=== PATIENT | male | born 1945 | race Caucasian/White ===

== ENCOUNTER → 2016-09-07 | Outpatient (CLI) | payer OTHER | LOC: GIMAGING 13:00 | PROVIDERS: ATTEND Nurse Practitioner Family | DX: J40 Bronchitis, not specified as acute or chronic (principal) | CPT/HCPCS: 71020-PO ==

== ENCOUNTER 2016-09-22 11:46 | Emergency (ER) | payer OTHER ==
[2016-09-22] MEDS ORDERED: IPRATROPIUM/ALBUTEROL 3 ML DEYVIAL ONE (13:00)
[2016-09-22] MEDS ORDERED: IPRATROPIUM/ALBUTEROL 3 ML DEYVIAL IH ONE (13:06)
--- NOTE | 2016-09-22 13:06 | EDPHY ---
H & P Stated Complaint: dx bronchitis/continues sob/fevers Source: Patient Exam Limitations: No limitations - Personal History Current Tetanus/Diphtheria Vaccine: Yes - Medical/Surgical History Hx Asthma: No Hx Chronic Respiratory Disease: No Hx Diabetes: No Hx Cardiac Disease: No Hx Renal Disease: No Hx Cirrhosis: No Hx Alcoholism: No Hx HIV/AIDS: No Hx Splenectomy or Spleen Trauma: No Other PMH: htn - Family History Significant Family History: No pertinent family hx - Social History Smoking Status: Never smoked Alcohol Use: Sober Drug Use: None Time Seen by Provider: 09/22/16 12:59 HPI/ROS: CHIEF COMPLAINT: Cough HISTORY OF PRESENT ILLNESS: Patient is a 70-year-old man who comes to the emergency department complaining of a persistent cough and mild dyspnea. He has a history of smoking but quit several years ago and has never suffered from COPD. He was seen at the urgent care 3 weeks ago and diagnosed initially with bronchitis and influenza a positive. He was treated with Tamiflu, albuterol and course of steroids. He did not feel better. He went back a week later and again had a chest x-ray that revealed bronchitis. He was placed on another course of steroids and albuterol. He states that he hates steroids and they make him feel jittery when he stops taking them. He is here requesting antibiotics. He also states that he had a fever last night to 101. He has not been hypoxic. He is currently afebrile. 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 He does not have any leg swelling or pain. No recent travel. REVIEW OF SYSTEMS: Constitutional: denies: chills, fever, recent illness, recent injury EENTM: denies: blurred vision, double vision, nose congestion Respiratory: See HPI Cardiac: denies: chest pain, irregular heart rate, lightheadedness, palpitations Gastrointestinal/Abdominal: denies: abdominal pain, diarrhea, nausea, vomiting, blood streaked stools Genitourinary: denies: dysuria, frequency, hematuria, pain Musculoskeletal: denies: joint pain, muscle pain Skin: denies: lesions, rash, jaundice, bruising Neurological: denies: headache, numbness, paresthesia, tingling, dizziness, weakness Hematologic/Lymphatic: denies: blood clots, easy bleeding, easy bruising Immunologic/allergic: denies: HIV/AIDS, transplant EXAM: GENERAL: Well-appearing, well-nourished and in no acute distress. HEAD: Atraumatic, normocephalic. EYES: Pupils equal round and reactive to light, extraocular movements intact, sclera anicteric, conjunctiva are normal. ENT: TMs normal, nares patent, oropharynx clear without exudates. Moist mucous membranes. NECK: Normal range of motion, supple without lymphadenopathy or JVD. LUNGS: Breath sounds clear to auscultation bilaterally and equal. No wheezes rales or rhonchi. HEART: Regular rate and rhythm without murmurs, rubs or gallops. ABDOMEN: Soft, nontender, normoactive bowel sounds. No guarding, no rebound. No masses appreciated. BACK: No CVA tenderness, no spinal tenderness, step-offs or deformities EXTREMITIES: Normal range of motion, no pitting or edema. No clubbing or cyanosis. NEUROLOGICAL: Cranial nerves II through XII grossly intact. Normal speech, normal gait. 5/5 strength, normal movement in all extremities, normal sensation PSYCH: Normal mood, normal affect. SKIN: Warm, dry, normal turgor, no visible rashes or lesions. (Chiki Cole) Constitutional: Initial Vital Signs Temperature (C) 36.3 C 09/22/16 11:56 Heart Rate 108 H 09/22/16 11:56 Respiratory Rate 20 09/22/16 11:56 Blood Pressure 120/91 H 09/22/16 11:56 O2 Sat (%) 92 09/22/16 11:56 O2 Delivery Mode Room Air O2 (L/minute) 2 Allergies/Adverse Reactions: No Known Allergies Allergy (Unverified 09/22/16 11:55) Home Medications: Medication Instructions Recorded Omeprazole 09/22/16 Triamterene 09/22/16 Medical Decision Making - Diagnostics EKG Interpretation: An EKG obtained and was read and documented in trace view. Please see trace view for full reading and report. Sinus tachycardia, no acute ischemic changes. (Chiki Cole) Imaging: X-ray: chest x-ray was obtained. I viewed the images myself on the PACS system. My interpretation of the images is: Mild bronchitis. The radiologist interpretation is pending. (Chiki Cole) ED Course/Re-evaluation: 2:25 p.m. the patient is feeling much better. He is saturating 92% on room air. Nursing staff states that he did saturate down to 88% after returning from x-ray. Treat with another nebulizer and a dose of steroids. I will also start on azithromycin. 3:00 p.m. the patient is hyperglycemic but not acidotic. Also he is hyponatremic Likely from the elevated glucose. I will treat with IV fluids and a dose of insulin and recheck his glucose. His heart rate is 100 to 104 otherwise oxygen saturations 92%. Discussed the case with Dr. Arminda Degroot. We agreed to continue with ER treatment. The patient does not wish to come into the hospital and we may be able to turn her around emergency department with close follow up with his primary Dr. Duarte. 3:15 p.m. care transferred to Dr. Agueda Andrade. We are awaiting insulin dose and repeat his glucose level as well as observation for mild tachycardia and borderline hypoxic. Dr. Degroot is aware of the patient if he requires admission. (Chiki Cole) Differential Diagnosis: Partial list of the Differential diagnosis considered include but were not limited to; bronchitis, pneumonia, COPD exacerbation, asthma and although unlikely based on the history and physical exam, I also considered pneumothorax , PE, acute coronary disease. I discussed these differential diagnoses and the plan with the patient as well as the usual and expected course. The patient understands that the diagnosis is provisional and that in medicine we are not always correct and that further workup is often warranted. Usual and customary warnings were given. All of the patient's questions were answered. The patient was instructed to return to the emergency department should the symptoms at all worsen or return, otherwise to followup with the physician as we discussed. (Chiki Cole) Other Provider: The patient was signed out to me by Dr. Cole at shift change. He presents with ongoing URI sx and hyperglycemia. His main reason for coming to the ED is for Abx. He was diagnosed 3 weeks ago with bronchitis and influenza A. He was treated with Tamiflu, albuterol and course of steroids. He continued to have a cough and was reevaluated 1 week later. CXR unremarkable. [place] He states his oxygen saturations are in the upper 88-92% at home. He declines admission and home oxygen. He agrees with the plan to start antibiotics. 4:00 p.m.: After patient received 5 units of insulin at 3pm, his glucose is now 382. I continued to advise admission, though the pt declines. He also declines treatment for hyperglycemia/diabetes. He will buy a glucometer and record his blood sugars prior to his PCP visit. Dietary advice given. (Agueda Andrade) - Data Points Laboratory Results: Laboratory Results 09/22/16 13:40 09/22/16 13:40 09/22/16 13:46 Hemoglobin A1c 9.6 % H D % (4.0-6.0) Estim Average Glucose 229 mg/dL H mg/dL (68-126) Microbiology Results: MICROBIOLOGY 09/22/16 13:40 Blood Blood Culture - Preliminary 09/22/16 14:10 Blood Blood Culture - Preliminary Medications Given: Discontinued Medications Albuterol (Proventil Neb) 3 ml IH EDNOW ONE Stop: 09/22/16 14:27 Last Admin: 09/22/16 14:50 Dose: 3 ml Albuterol/Ipratropium (Duoneb) 3 ml IH EDNOW ONE Stop: 09/22/16 13:07 Last Admin: 09/22/16 13:07 Dose: 3 ml Azithromycin (Zithromax) 500 mg PO EDNOW ONE PRN Reason: Protocol Stop: 09/22/16 14:27 Last Admin: 09/22/16 15:02 Dose: 500 mg Sodium Chloride (Ns) 1,000 mls @ 0 mls/hr IV ONCE ONE PRN Reason: Wide Open Stop: 09/22/16 15:04 Last Admin: 09/22/16 15:18 Dose: 1,000 mls Insulin Human Regular (Humulin R) 5 unit IVP EDNOW ONE Stop: 09/22/16 15:02 Last Admin: 09/22/16 15:17 Dose: 5 unit Methylprednisolone Sodium Succinate (Solu-Medrol) 125 mg IVP EDNOW ONE Stop: 09/22/16 14:27 Last Admin: 09/22/16 15:03 Dose: 125 mg Departure - Departure Disposition: Home, Routine, Self-Care Clinical Impression: Hyperglycemia Acute bronchitis Qualifiers: Bronchitis organism: unspecified organism Qualified Code(s): J20.9 - Acute bronchitis, unspecified Condition: Fair Instructions: Acute Bronchitis (ED), Diabetic Hyperglycemia (ED) Additional Instructions: Buy a glucometer and check and record your blood sugar before meals and at bedtime. Take the record to Dr. Duarte for further evaluation. Use oxygen concentrator at night. Return if you feel more short of breath or if your symptoms worsen. Referrals: Thomas Duarte MD [Primary Care Provider] - 2-3 days, call for appt.
--- NOTE | 2016-09-22 13:31 | CPEKG ---
Heart Rate: 106 RR Interval: 566 P-R Interval: 156 QRSD Interval: 90 QT Interval: 356 QTC Interval: 473 P Dale: 85 QRS Dale: 116 T Wave Dale: 33 EKG Severity - ABNORMAL ECG - EKG Impression: SINUS TACHYCARDIA EKG Impression: LEFT POSTERIOR FASCICULAR BLOCK EKG Impression: BORDERLINE R WAVE PROGRESSION, ANTERIOR LEADS Electronically Signed By: Chiki Cole 22-Sep-2016 13:48:33
[2016-09-22 13:51] LABS: % IMMATURE GRANULYOCYTES 0.8 % (0.0-1.1); ABSOLUTE IMMATURE GRANULOCYTES 0.08 10^3/uL (0.00-0.10); ADD DIFF? NO; ADD MORPH? NO; ADD SCAN? NO; ATYPICAL LYMPHOCYTE FLAG 0 (0-99); FRAGMENT RBC FLAG 0 (0-99); LEFT SHIFT FLG 0 (0-99); LIPEMIA HEMOLYSIS FLAG 90 (0-99); MEAN CELL HEMOGLOBIN 33.1 pg (27.9-34.1); MEAN CELL HEMOGLOBIN CONCENTR. 35.3 g/dL (32.4-36.7); MEAN CELL VOLUME 93.9 fL (81.5-99.8); MEAN PLATELET VOLUME 11.4 fL (8.7-11.7); PLATELET CLUMPS FLAG 40 (0-99); PLATELET COUNT 137 10^3/uL (150-400); RED BLOOD CELL COUNT 5.43 10^6/uL (4.40-6.38); RED CELL DISTRIBUTION WIDTH 13.1 % (11.5-15.2)
[2016-09-22] MEDS ORDERED: AZITHROMYCIN 250 MG TAB PO ONE (14:26)
[2016-09-22] MEDS ORDERED: ALBUTEROL 3 ML DEYVIAL IH ONE (14:26)
[2016-09-22] MEDS ORDERED: methylPREDNISolone SOD SUCC 125 MG/2 ML VIAL IVP ONE (14:26)
[2016-09-22 14:30] LABS: ANION GAP 16 mEq/L (8-16); CALCIUM 9.4 mg/dL (8.5-10.4); CARBON DIOXIDE 25 mEq/l (22-31); CHLORIDE 88 mEq/L (97-110); CREATININE 1.3 mg/dL (0.7-1.3); GLOMERULAR FILTRATION RATE 54; GLUCOSE 403 mg/dL (70-100); POTASSIUM 3.5 mEq/L (3.5-5.2); SODIUM 129 mEq/L (134-144)
[2016-09-22] MEDS ORDERED: INSULIN REGULAR HUMAN 100 UNIT/ML IVP ONE (15:01)
[2016-09-22] MEDS ORDERED: NS 1,000 ML IV ONE (15:03)
[2016-09-22 15:23] LABS: TROPONIN I 0.024 ng/mL (0-0.034)
[2016-09-22 16:48] VITALS: BP 146/88; PULSE 86; RESP 20; TEMP 98.4; O2SAT 91
[2016-09-24 13:11] LABS: HEMOGLOBIN A1C 9.6 % (4.0-6.0)
== END 2016-09-22 16:45 | disposition home or self-care (01) ==
DX: J20.9 Acute bronchitis, unspecified (principal); R73.9 Hyperglycemia, unspecified; I10 Essential (primary) hypertension; Z87.891 Personal history of nicotine dependence
CPT/HCPCS: 71020; 93005; 96361; 96374; 96375; 99285; J1815; 82947-QW